=== PATIENT | female | born 1995 ===

== ENCOUNTER 2021-10-05 14:49 | Emergency (ER) | payer SELFPAY ==
[2021-10-05 15:49] VITALS: BP 104/71
--- NOTE | 2021-10-05 17:44 | Emergency Department Report ---
ED Headache HPI - General Chief Complaint: Headache Stated Complaint: MIGRAINE FOR 3 DAYS Source: patient, RN notes reviewed Exam Limitations: no limitations - History of Present Illness Initial Comments: This is a 26-year-old -[place] female who presents to the emergency room with a persistent headache for 3 days. Patient states she was diagnosed with COVID last when migraine originally started. Patient states she was seen by her neurologist at [facility] neurology who ordered an MRI pending results. Patient states she have a follow-up appointment next week. Patient states she originally had nausea which has resolved after seeing an urgent care clinic this morning. Patient states she was given Toradol and steroids in urgent care. Patient states she usually takes topiramate and nasal sumatriptan for symptom management. Patient states she did not take them today. Denies visual changes, dizziness, slurred speech, drooling, or weakness. Allergies/Adverse Reactions: Allergies No Known Allergies Allergy (Unverified 10/05/21 15:49) ED Review of Systems ROS: Stated complaint: MIGRAINE FOR 3 DAYS Other details as noted in HPI Constitutional: denies: chills, fever Respiratory: denies: cough, shortness of breath, wheezing Cardiovascular: denies: chest pain, palpitations Skin: denies: rash, lesions Neurological: headache. denies: weakness, numbness, paresthesias Psychiatric: denies: anxiety, depression ED Past Medical Hx - Past Medical History Previous Medical History?: No - Surgical History Past Surgical History?: No ED Physical Exam - General Limitations: No Limitations General appearance: alert, in no apparent distress - Eye Eye exam: Present: normal appearance, PERRL, EOMI Pupils: Present: normal accommodation - ENT ENT exam: Present: mucous membranes moist - Neck Neck exam: Present: normal inspection, full ROM. Absent: meningismus, lymphadenopathy - Respiratory Respiratory exam: Present: normal lung sounds bilaterally. Absent: respiratory distress - Cardiovascular Cardiovascular Exam: Present: regular rate, normal rhythm. Absent: systolic murmur, diastolic murmur, rubs, gallop - Neurological Exam Neurological exam: Present: alert, oriented X3, normal gait - Expanded Neurological Exam Expanded Patient oriented to: Present: person, place, time Speech: Present: fluid speech Cranial nerves: EOM's Intact: Normal, Gag Reflex: Normal, Tongue Deviation: Normal, Facial Sensation: Normal Upper motor neuron: Dany Neglect: Normal, Pronator Drift: Normal, Sensory Extinction: Normal Sensory exam: Upper Extremity Light Touch: Normal, Upper Extremity Pin Prick: Normal Motor strength exam: RUE: 5, LUE: 5 Best Eye Response (Barnwell): (4) open spontaneously Best Motor Response (Shira): (6) obeys commands Best Verbal Response (Shira): (5) oriented Barnwell Total: 15 - Psychiatric Psychiatric exam: Present: normal affect, normal mood - Skin Skin exam: Present: warm, dry, intact, normal color. Absent: rash ED Course Vital Signs 10/05/21 15:48 Temperature 98.9 F Pulse Rate 74 Respiratory 18 Rate Blood Pressure 104/71 [Left] O2 Sat by Pulse 99 Oximetry ED Medical Decision Making - Medical Decision Making This is a 26-year-old female that presents with headache for 3 days. COVID- positive last . History of migraines. Patient is stable and was examined by me. Patient has MRI this for review that was given to her on Friday, unable to review. Follow-up by neurology. Recently given Toradol and Decadron in urgent care 1 hour prior to arrival. No signs of distress noted. Patient instructed to continue taking sumatriptan hand and Topamax as prescribed by her neurologist last week. Follow up with PCP and neurology within 2 to 3 days. No further questions noted by the patient. Discharged home in stable condition. Critical care attestation.: If time is entered above; I have spent that time in minutes in the direct care of this critically ill patient, excluding procedure time. ED Disposition Clinical Impression: Clinical diagnosis of COVID-19 Migraine Qualifiers: Migraine type: without aura Status migrainosus presence: with status migrainosus Intractability: not intractable Qualified Code(s): G43.001 - Migraine without aura, not intractable, with status migrainosus Disposition: 07 LEFT AWOL/ELOPED Is pt being admited?: No Condition: Stable Instructions: COVID-19, Recurrent Migraine Headache, [id number] Referrals: [facility] [Provider Group] - 3-5 Days KAMALA BLOOM MD [Staff Physician] - 3-5 Days Forms: Work/School Release Form(ED) Time of Disposition: 17:40
== END 2021-10-05 17:50 | disposition left against medical advice (07) ==
LOC: ED 14:49
DX: G43.909 Migraine, unspecified, not intractable, without status migrainosus (principal); Z20.822 Contact with and (suspected) exposure to COVID-19
CPT/HCPCS: 99281